=== PATIENT | female | born 1980 | race Two or more races ===

== ENCOUNTER 2017-05-25 06:18 | Day surgery (SDC) | payer OTHER ==
[~2017-05-25 06:18] MED LIST: CEFAZOLIN 2 GM/50 ML (PMX) 50 ML IVPB
[2017-05-25] MEDS ORDERED: PROPOFOL 100 ML (07:39)
[2017-05-25] MEDS ORDERED: ROCURONIUM 50 MG INJ (07:41)
[2017-05-25] MEDS ORDERED: FENTAnyl 50 MCG/ML VIAL ×2 (07:42→08:35)
[2017-05-25] MEDS ORDERED: MIDAZOLAM 1 MG/ML 2 ML INJ (07:59)
[2017-05-25] MEDS ORDERED: BUPIVACAINE 0.5% (SDV) 30 ML INJ (08:05)
[2017-05-25] MEDS ORDERED: LIDOCAINE 1%/EPI 30 ML INJ (08:06)
[2017-05-25] MEDS ORDERED: DEXAMETHASONE 4 MG/ML 1 ML INJ (08:31)
[2017-05-25] MEDS ORDERED: KETOROLAC 30 MG INJ (08:32)
[2017-05-25] MEDS: LIDOCAINE 1%/EPI 30 ML INJ INJ (08:41)
[2017-05-25] MEDS ORDERED: ONDANSETRON 4 MG INJ (08:55)
[2017-05-25] MEDS ORDERED: SUGAMMADEX SODIUM 200 MG/2 ML VIAL IV (08:56)
[2017-05-25] MEDS ORDERED: CEFAZOLIN 1 GM INJ (09:07)
[2017-05-25] MEDS ORDERED: ALBUTEROL 0.083% (NEB) 2.5 MG/3 ML AMP HHN (09:30)
[2017-05-25] MEDS ORDERED: HYDROmorphONE (0.2 MG/ML) 10ML SYG IV ×3 (09:30)
[2017-05-25] MEDS ORDERED: ONDANSETRON 4 MG INJ IV (09:30)
[2017-05-25] MEDS ORDERED: hydrALAzine 20 MG INJ IV (09:30)
[2017-05-25] MEDS ORDERED: KETOROLAC 30 MG INJ IV ×2 (09:30)
[2017-05-25] MEDS ORDERED: EPHEDrine SULFATE 50 MG/5 ML SYG IV (09:30)
[2017-05-25] MEDS ORDERED: FENTAnyl 50 MCG/ML VIAL IV ×3 (09:30)
[2017-05-25] MEDS ORDERED: LABETALOL HCL 20MG INJ IV (09:30)
[2017-05-25] MEDS ORDERED: METOCLOPRAMIDE 10 MG INJ IV (09:30)
[2017-05-25] MEDS ORDERED: DIPHENHYDRAMINE 50 MG INJ IV (09:30)
[2017-05-25] MEDS ORDERED: OXYCODONE/ACETAMINOPHEN (5/325) TAB PO ×2 (09:30)
[2017-05-25] MEDS ORDERED: MIDAZOLAM 1 MG/ML 2 ML INJ IV (09:30)
[2017-05-25] MEDS: MEPERIDINE 25 MG INJ IV (09:50)
== END 2017-05-25 11:20 | disposition home or self-care (01) ==
LOC: SDS 06:18
DX: Z30.2 Encounter for sterilization (principal); E66.9 Obesity, unspecified; Z68.29 Body mass index [BMI] 29.0-29.9, adult
CPT/HCPCS: 58661; 84703; 88302; 93005